=== PATIENT | male | born 1970 | race Two or more races ===

== ENCOUNTER 2023-03-07 14:46 | Emergency (ER) | payer OTHER ==
[~2023-03-07] VITALS: Ht 177.8 cm; Wt 90.7 kg
[~2023-03-07 14:46] MED LIST: LOSARTAN-HCTZ1 EACH
[2023-03-07] MEDS ORDERED: DUI500 PO (16:59)
[2023-03-07] MEDS ORDERED: MUPIROCIN15 GM TOP (16:59)
== END 2023-03-07 17:02 | disposition home or self-care (01) ==
LOC: ER 14:46
DX: S61.022A Laceration with foreign body of left thumb without damage to nail, initial encounter (principal); W45.8XXA Other foreign body or object entering through skin, initial encounter; Y93.89 Activity, other specified; Y92.89 Other specified places as the place of occurrence of the external cause

== ENCOUNTER → 2023-03-17 | Emergency (ER) | payer OTHER ==
[~2023-03-17] VITALS: Ht 177.8 cm; Wt 90.7 kg
[~2023-03-17] MED LIST changes: +COZAAR50 MG PO; +DUI500 PO; +MUPIROCIN15 GM TOP
== END | disposition home or self-care (01) ==
LOC: ER 07:33
DX: Z48.02 Encounter for removal of sutures (principal)